=== PATIENT | male | born 1995 ===

== ENCOUNTER 2024-02-25 15:49 | Inpatient (IN) | payer BC, SELFPAY ==
[2024-02-25] MEDS ORDERED: Morphine 2 MG/ML VIAL SLOW IVP PRN (17:45)
[2024-02-25] MEDS ORDERED: Ipratropium/Albuterol 3 ML NEB NEB PRN (17:45)
[2024-02-25] MEDS ORDERED: diphenhydrAMINE 50 MG/ML VIAL IM PRN (17:49)
[2024-02-25] MEDS ORDERED: Ondansetron PF 4 MG/2 ML Vial IVP PRN (17:49)
[2024-02-25] MEDS ORDERED: diphenhydrAMINE 50 MG/ML VIAL IVP PRN (17:49)
[2024-02-25] MEDS ORDERED: HYDROmorphone/PF 10 MG in Sodium Chloride 0.9% 99 ML IV PRN (17:49)
[2024-02-25] MEDS ORDERED: diphenhydrAMINE 25 MG CAP PO PRN (17:49)
[2024-02-25] MEDS ORDERED: Naloxone HCl 0.4 mg/ml Vial IV PRN (17:49)
[2024-02-25] MEDS ORDERED: ACTIVE PCA FS SCH (18:00)
[2024-02-25] MEDS ORDERED: Methocarbamol 1 GM in Sodium Chloride 0.9% 100 ML IVPB SCH (18:00)
[2024-02-25] MEDS ORDERED: Methocarbamol 500 MG TAB PO PRN (18:02)
[2024-02-25] MEDS: Morphine 4 MG/ML VIAL SLOW IVP SCH (18:09)
[2024-02-25] MEDS: Sodium Chloride 0.9% 1,000 ML IV SCH (18:14)
[2024-02-25] MEDS: Acetaminophen 325 MG TAB PO SCH (18:15)
[2024-02-25] MEDS: HYDROmorphone/PF 10 MG in Sodium Chloride 0.9% 99 ML IVPB PRN (18:39)
[2024-02-25] MEDS: Diazepam 5 MG TAB PO SCH (20:25)
[2024-02-25] MEDS: Pregabalin 50 MG CAP PO SCH (20:25)
[2024-02-25] MEDS: tiZANidine HCl 4 MG TAB PO PRN (23:14)
[2024-02-26 00:20] VITALS: BMI 17.4
[2024-02-26] MEDS: Ketorolac Tromethamine 30 MG (1 mL) VIAL IVP PRN (00:23)
[2024-02-26 04:39] LABS: #Basophils 0.03 10x3/uL (0.0-0.2); %Basophils 0.3 % (0.0-1.0); %Eosinophils 1.1 % (0.0-10.0); %Lymphocytes 18.3 % (21.0-51.0); %Monocytes 9.6 % (0.0-10.0); %Neutrophils 70.3 % (42.0-75.0); Hematocrit 42.5 % (42.0-52.0); Hemoglobin 14.7 g/dL (14.0-18.0); Mean Corpuscular HGB CONC 34.6 g/dL (32.0-36.0); Mean Corpuscular Hemoglobin 31.5 pg (27.0-31.0); Mean Platelet Volume 9.9 fL (7.4-10.4); Platelet Count 246 10x3/uL (130-400); RBC Distribution Width 11.9 % (11.5-14.5); Red Blood Cell (RBC) Count 4.67 mill/uL (4.70-6.10)
[2024-02-26 05:09] LABS: Anion Gap 11 mmol/L (10-20); BUN (Urea Nitrogen) 10 mg/dL (8.9-20.6); Calc. Creatinine Clearance 80 mL/min (70-130); Carbon Dioxide 25 mmol/L (22-29); Chloride 105 mmol/L (98-107); Estimated GFR 110; Glucose 103 mg/dL (70-105); Potassium 3.8 mmol/L (3.5-5.1); Sodium 137 mmol/L (136-145)
[2024-02-26 05:58] LABS: Calcium 8.7 mg/dL (7.8-10.44)
[2024-02-26] MEDS ORDERED: Vancomycin 1 GM VIAL ONE (07:10)
[2024-02-26] MEDS ORDERED: Thrombin 5000 UNITS/5 ML VIAL ONE (07:11)
[2024-02-26] MEDS ORDERED: fentaNYL PF 100 MCG/2 ML SYRINGE ONE ×2 (07:23→12:29)
[2024-02-26] MEDS ORDERED: Lidocaine 1% PF 5 ML VIAL ONE (07:24)
[2024-02-26] MEDS ORDERED: Rocuronium Bromide 10 MG/ML (10ML VIAL) ONE ×2 (07:24→08:59)
[2024-02-26] MEDS ORDERED: PROPOFOL 20 ML ONE (07:24)
[2024-02-26] MEDS ORDERED: Dexamethasone 20 MG/5 ML VIAL ONE (07:24)
[2024-02-26] MEDS ORDERED: Midazolam HCl 2 mg/2 ml Vial ONE (07:24)
[2024-02-26] MEDS ORDERED: Ondansetron PF 4 MG/2 ML Vial ONE (07:24)
[2024-02-26] MEDS ORDERED: CEFAZOLIN 2 GM VIAL ONE (07:58)
[2024-02-26] MEDS ORDERED: PHENYLEPHRINE-NS 100 MCG/ML 10 ML SYRINGE ONE (08:35)
[2024-02-26] MEDS ORDERED: SUGAMMADEX SODIUM 200 MG/2 ML VIAL ONE (11:39)
[2024-02-26] MEDS ORDERED: Milk Of Magnesia 30 ML UDCUP PO PRN (12:11)
[2024-02-26] MEDS ORDERED: HYDROmorphone 2 MG/ML VIAL SLOW IVP PRN (12:18)
[2024-02-26] MEDS ORDERED: Ondansetron HCl/PF 4 MG/2 ML Vial IVP PRN (12:18)
[2024-02-26] MEDS ORDERED: Promethazine HCl 25 MG/ML VIAL IM PRN (12:18)
[2024-02-26] MEDS: Diazepam 5 MG TAB PO PRN (13:53)
[2024-02-26] MEDS: CEFAZOLIN 2 GM in Sodium Chloride 0.9% 100 ML IVPB SCH (14:40)
[2024-02-26] MEDS: Ondansetron PF 4 MG/2 ML Vial IVP PRN (14:44)
[2024-02-26] MEDS: Promethazine HCl 25 MG/ML VIAL IM PRN (18:23)
[2024-02-26] MEDS: Docusate 100 MG CAP PO SCH (19:52)
[2024-02-27] MEDS ORDERED: traMADol HCl 50 MG TAB PO PRN (07:45)
[2024-02-27] MEDS ORDERED: Ibuprofen 600 MG TAB PO PRN (07:46)
[2024-02-27] MEDS: Acetaminophen 500 MG TAB PO SCH (10:23)
[2024-02-27] MEDS: Polyethylene Glycol 3350 17 GM Packet PO SCH (10:24)
[2024-02-27] MEDS: Senokot S 8.6-50 MG TAB PO SCH (10:24)
[2024-02-27] MEDS ORDERED: Acetaminophen/Codeine 30-300mg Tablet PO PRN (10:26)
[2024-02-27] MEDS: HYDROcodone/Acetaminophen 5/325 mg Tablet PO PRN (11:32)
[2024-02-27] MEDS: Ketorolac Tromethamine 30 MG (1 mL) VIAL IVP PRN (11:32)
[2024-02-27 13:40] VITALS: BMI 39.2
[2024-02-27] MEDS: Morphine 2 MG/ML VIAL SLOW IVP PRN (16:34)
[2024-02-27] MEDS: traMADol HCl 50 MG TAB PO PRN (17:13)
[2024-02-27] MEDS: Acetaminophen 325 MG TAB PO SCH (17:13)
[2024-02-28 05:32] LABS: Hematocrit 35.1 % (42.0-52.0); Hemoglobin 11.9 g/dL (14.0-18.0)
[2024-02-28 08:09] VITALS: TEMP 98.2
[2024-02-28 12:05] VITALS: BP 150/90
[2024-02-28] MEDS ORDERED: Ibuprofen 600 MG TAB PO PRN (14:17)
[2024-02-28] MEDS ORDERED: Acetaminophen 325 MG TAB PO PRN (14:17)
== END 2024-02-28 14:05 | disposition home or self-care (01) | DRG 958 ==
LOC: SURG B 17:18
PROVIDERS: ADMIT Student in an Organized Health Care Education/Training Program; ATTEND Student in an Organized Health Care Education/Training Program
PROC: 0QS004Z Reposition Lumbar Vertebra with Internal Fixation Device, Open Approach (ICD-10-PCS; principal; 2024-02-26)
PROC: 0SG1071 Fusion of 2 or more Lumbar Vertebral Joints with Autologous Tissue Substitute, Posterior Approach, Posterior Column, Open Approach (ICD-10-PCS; 2024-02-26)
PROC: 01NB0ZZ Release Lumbar Nerve, Open Approach (ICD-10-PCS; 2024-02-26)
DX: S32.021A Stable burst fracture of second lumbar vertebra, initial encounter for closed fracture (principal); G83.4 Cauda equina syndrome; S36.113A Laceration of liver, unspecified degree, initial encounter; S27.0XXA Traumatic pneumothorax, initial encounter; S22.31XA Fracture of one rib, right side, initial encounter for closed fracture; V89.2XXA Person injured in unspecified motor-vehicle accident, traffic, initial encounter; Z79.899 Other long term (current) drug therapy
CPT/HCPCS: 36415; 80048; 85014; 85018; 85025; A6258; C1713; C1889; J1100; J1171; J1885; J2250; J2272; J2405; J2550; J2704; J3370; J7030